=== PATIENT | female | born 1955 | race American Indian/Alaskan Native ===

== ENCOUNTER 2017-01-03 10:37 | Emergency (ER) | payer SELFPAY ==
[2017-01-03 11:15] LABS: Basophils % (Auto) 0.6 % (0.0-1.8); Eosinophils % (Auto) 3.2 % (0.0-4.3); Hemoglobin 12.5 gm/dl (10.1-14.3); Mean Corpuscular HGB Conc 33 % (30-34); Mean Corpuscular Hemoglobin 29 pg (28-32); Mean Corpuscular Volume 87 fl (79-97); Platelet Count 174 K/mm3 (140-440); Red Blood Count 4.37 M/mm3 (3.65-5.03); Red Cell Distribution Width 14.7 % (13.2-15.2); White Blood Count 4.7 K/mm3 (4.5-11.0)
[2017-01-03 11:33] LABS: Alanine Aminotransferase 12 units/L (7-56); Albumin 3.7 g/dL (3.9-5); Albumin/Globulin Ratio 1.3 %; Alkaline Phosphatase 53 units/L (35-129); Anion Gap 12 mmol/L; Bilirubin,Total 0.4 mg/dL (0.1-1.2); Blood Urea Nitrogen 7 mg/dL (7-17); Carbon Dioxide 29 mmol/L (22-30); Chloride 105.3 mmol/L (98-107); Glucose 173 mg/dL (65-100); Lipase 16 units/L (13-60); Potassium 4.2 mmol/L (3.6-5.0); Sodium 142 mmol/L (137-145); Total Protein 6.6 g/dL (6.3-8.2)
[2017-01-03 14:48] LABS: Bilirubin,Urine NEG (Negative); Blood,Urine SM (Negative); Ketones,Urine NEG (Negative); Leukocyte Esterase,Urine NEG (Negative); Mucus,Urine FEW /HPF; Nitrite,Urine NEG (Negative); Protein,Urine <15 mg/dL mg/dL (Negative); Urobilinogen,Urine < 2.0 mg/dL (<2.0)
--- NOTE | 2017-01-03 22:06 | Emergency Department Report ---
ED General Adult HPI - General Chief complaint: Abdominal Pain Stated complaint: ABD PAIN /BULGE IN VAG AREA Time Seen by Provider: 01/03/17 21:30 Source: patient Mode of arrival: Ambulatory Limitations: No Limitations - History of Present Illness Initial comments: 61-year-old female with past medical history of possible dementia, diabetes, hypertension, high cholesterol and previous hysterectomy is brought in by her daughter expresses concerns for multiple ongoing chronic conditions. Patient does not have a primary care doctor and they are trying to get Medicaid. Patient has been living with her daughter since December 2015. Daughter reports that she has been forgetful but does not have a diagnosis of dementia. Daughter also states the patient is complaining of intermittent abdominal pain since October 2016. 8 days ago daughter saw patient showering and noticed something sticking out of her vagina possible bladder prolapse. She also noticed something white at her labia. Patient does not have any complaints currently and denies abdominal pain. Also tolerating by mouth intake without nausea, vomiting, diarrhea, or fever. - Related Data Home Medications Medication Instructions Recorded Confirmed Last Taken Simvastatin [Zocor TAB] 20 mg PO QHS 01/03/17 01/03/17 Unknown amLODIPine [Norvasc] 5 mg PO DAILY 01/03/17 01/03/17 Unknown metFORMIN [Glucophage] 500 mg PO BID 01/03/17 01/03/17 Unknown Allergies Allergy/AdvReac Type Severity Reaction Status Date / Time No Known Allergies Allergy Unverified 01/03/17 10:42 ED Review of Systems ROS: Stated complaint: ABD PAIN /BULGE IN VAG AREA Other details as noted in HPI Comment: All other systems reviewed and negative Other: Constitutional: No fevers chills Eyes: No eye pain visual changes ENT: No ear pain or throat pain Neck: Denies pain Respiratory: Denies cough wheezing shortness of breath Cardiovascular: Denies chest pain, palpitations, syncope GI: Denies nausea, vomiting, diarrhea : Denies dysuria Musculoskeletal: Denies back pain Skin: Denies rash, lesions, erythema Neurologic: Denies headache, numbness, weakness Psychiatric: Denies suicidal ideation, hallucinations ED Past Medical Hx - Past Medical History Previous Medical History?: Yes Hx Hypertension: Yes Hx Diabetes: Yes Hx Dementia: Yes (no diagnosis) Additional medical history: High cholesterol, Non compliance with all meds - Surgical History Past Surgical History?: Yes Additional Surgical History: Hysterectomy - Social History Smoking Status: Former Smoker Substance Use Type: Prescribed - Medications Home Medications: Home Medications Medication Instructions Recorded Confirmed Last Taken Type Simvastatin [Zocor TAB] 20 mg PO QHS 01/03/17 01/03/17 Unknown History amLODIPine [Norvasc] 5 mg PO DAILY 01/03/17 01/03/17 Unknown History metFORMIN [Glucophage] 500 mg PO BID 01/03/17 01/03/17 Unknown History ED Physical Exam - General Limitations: No Limitations - Other Other exam information: General: No limitations, patient is alert in no acute distress Head exam: Atraumatic, normocephalic Eyes exam: Normal appearance ENT: Moist mucous membrane, normal oropharynx Neck exam: Normal inspection, full range of motion, no meningismus nontender Respiratory exam: Clear to auscultation bilateral, no wheezes, rales, crackles Cardiovascular: Normal rate and rhythm, normal heart sounds Abdomen: Soft, nondistended, and nontender, with normal bowel sounds, no rebound, or guarding : No signs of prolapse from the vagina at this time. Patient has a white pedunculated lesion to the right inferior labia and a smaller flat lesion to the left mid labia. Nontender on exam. No significant discharge or malodorous discharge Extremity: Full range of motion normal inspection no deformity Back: Normal Inspection, full range of motion, no tenderness Neurologic: Alert, patient is oriented to self and place however, not to year, age, and cannot recall who the president is. Cranial nerves intact, no motor or sensory deficit Psychiatric: normal affect, normal mood Skin: Warm, dry, intact ED Course Vital Signs 01/03/17 10:42 Temperature 97.7 F Pulse Rate 58 L Respiratory 18 Rate Blood Pressure 174/71 O2 Sat by Pulse 100 Oximetry - Reevaluation(s) Reevaluation #1: 01/03/17 22:10 Patient stable and asymptomatic ED Medical Decision Making - Lab Data Result diagrams: 01/03/17 10:59 01/03/17 10:59 Lab Results 01/03/17 01/03/17 01/03/17 Range/Units 10:59 10:59 14:15 WBC 4.7 (4.5-11.0) K/mm3 RBC 4.37 (3.65-5.03) M/mm3 Hgb 12.5 (10.1-14.3) gm/dl Hct 38.0 (30.3-42.9) % MCV 87 (79-97) fl MCH 29 (28-32) pg MCHC 33 (30-34) % RDW 14.7 (13.2-15.2) % Plt Count 174 (140-440) K/mm3 Lymph % (Auto) 35.2 H (13.4-35.0) % Dougherty % (Auto) 5.9 (0.0-7.3) % Eos % (Auto) 3.2 (0.0-4.3) % Baso % (Auto) 0.6 (0.0-1.8) % Lymph # 1.6 (1.2-5.4) K/mm3 Dougherty # 0.3 (0.0-0.8) K/mm3 Eos # 0.1 (0.0-0.4) K/mm3 Baso # 0.0 (0.0-0.1) K/mm3 Seg Neutrophils % 55.1 (40.0-70.0) % Seg Neutrophils # 2.6 (1.8-7.7) K/mm3 Sodium 142 (137-145) mmol/L Potassium 4.2 (3.6-5.0) mmol/L Chloride 105.3 (98-107) mmol/L Carbon Dioxide 29 (22-30) mmol/L Anion Gap 12 mmol/L BUN 7 (7-17) mg/dL Creatinine 0.7 (0.7-1.2) mg/dL Estimated GFR > 60 ml/min BUN/Creatinine Ratio 10.00 % Glucose 173 H (65-100) mg/dL Calcium 9.0 (8.4-10.2) mg/dL Total Bilirubin 0.4 (0.1-1.2) mg/dL AST 13 (5-40) units/L ALT 12 (7-56) units/L Alkaline Phosphatase 53 (35-129) units/L Total Protein 6.6 (6.3-8.2) g/dL Albumin 3.7 L (3.9-5) g/dL Albumin/Globulin Ratio 1.3 % Lipase 16 (13-60) units/L Urine Color Straw (Yellow) Urine Turbidity Clear (Clear) Urine pH 6.0 (5.0-7.0) Ur Specific Brogan 1.008 (1.003-1.030) Urine Protein <15 mg/dl (Negative) mg/dL Urine Glucose (UA) >=500 (Negative) mg/dL Urine Ketones Neg (Negative) mg/dL Urine Blood Sm (Negative) Urine Nitrite Neg (Negative) Urine Bilirubin Neg (Negative) Urine Urobilinogen < 2.0 (<2.0) mg/dL Ur Leukocyte Esterase Neg (Negative) Urine WBC (Auto) 1.0 (0.0-6.0) /HPF Urine RBC (Auto) 4.0 (0.0-6.0) /HPF U Epithel Cells (Auto) 1.0 (0-13.0) /HPF Urine Mucus Few /HPF - Medical Decision Making Patient has multiple chronic ongoing conditions and will benefit from a primary care doctor. Labia are likely warts that would need a biopsy and further evaluation for definitive diagnosis. No signs of prolapse at this time therefore it appears to be spontaneously reducible. Patient be referred to outpatient clinic/PMD, and TRAFFIC ENGINEERING TECHNICIAN physician for further workup - Differential Diagnosis rectal prolapse, bladder prolapse, dementia, UTI, Critical Care Time: No Critical care attestation.: If time is entered above; I have spent that time in minutes in the direct care of this critically ill patient, excluding procedure time. ED Disposition Clinical Impression: Forgetfulness, Vaginal lesion Disposition: DISCHARGED TO HOME OR SELFCARE Is pt being admited?: No Does the pt Need Aspirin: No Condition: Stable Instructions: Dementia (ED) Additional Instructions: It is important that you follow up with the TRAFFIC ENGINEERING TECHNICIAN doctor to have those vaginal lesions examined and possibly biopsy for definitive diagnosis. I have provided follow-up information for further treatment and diagnosis. Referrals: PETEY LUA MD [Staff Physician] - 3-5 Days (TRAFFIC ENGINEERING TECHNICIAN MD) YURY CARDONA MD [Staff Physician] - 3-5 Days (Primary care doctor) [facility] [Provider Group] - 3-5 Days (Primary care clinic) Time of Disposition: 22:14
[2017-01-03 22:09] VITALS: BP 180/72
== END 2017-01-03 22:41 | disposition home or self-care (01) ==
LOC: ED 10:37
DX: R41.3 Other amnesia (principal); N89.8 Other specified noninflammatory disorders of vagina; I10 Essential (primary) hypertension; E11.9 Type 2 diabetes mellitus without complications; F03.90 Unspecified dementia, unspecified severity, without behavioral disturbance, psychotic disturbance, mood disturbance, and anxiety; E78.00 Pure hypercholesterolemia, unspecified; Z87.891 Personal history of nicotine dependence
CPT/HCPCS: 36415; 80053; 81001; 83690; 85025; 99283